=== PATIENT | male | born 1935 | race American Indian/Alaskan Native ===

== ENCOUNTER 2017-03-20 20:52 | Observation (INO) | payer MEDICARE ==
[2017-03-20 21:35] LABS: Basophils % (Auto) 0.9 % (0.0-1.8); Eosinophils % (Auto) 4.2 % (0.0-4.3); Hematocrit 34.3 % (35.5-45.6); Hemoglobin 11.4 gm/dl (11.8-15.2); Mean Corpuscular HGB Conc 33 % (32-34); Mean Corpuscular Hemoglobin 32 pg (28-32); Mean Corpuscular Volume 97 fl (84-94); Platelet Count 205 K/mm3 (140-440); Red Blood Count 3.54 M/mm3 (3.65-5.03)
[2017-03-20 21:43] LABS: INR 0.99 (0.87-1.13)
[2017-03-20 21:44] LABS: Partial Thromboplastin Time 34.3 Sec. (24.2-36.6)
[2017-03-20 21:51] LABS: Anion Gap 15 mmol/L; BUN/Creatinine Ratio 13.33; Blood Urea Nitrogen 12 mg/dL (9-20); Calcium 8.6 mg/dL (8.4-10.2); Carbon Dioxide 27 mmol/L (22-30); Chloride 106.6 mmol/L (98-107); Glucose 83 mg/dL (75-100); Potassium 3.8 mmol/L (3.6-5.0); Sodium 145 mmol/L (137-145)
[2017-03-20] MEDS ORDERED: TYLENOL PO ONE (22:44)
[2017-03-20] MEDS ORDERED: MOTRIN PO ONE (22:44)
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
--- NOTE | 2017-03-21 01:18 | Cat Scan Report ---
FINAL REPORT PROCEDURE: CT ANGIO CHEST TECHNIQUE: Computerized tomographic angiography of the chest was performed after the IV injection of iodinated nonionic contrast including image processing. The image data was postprocessed using 2-dimensional multiplanar reformatted (MPR) and 3-dimensional (MIP and/or volume rendered) techniques. HISTORY: cp COMPARISON: No prior studies are available for comparison. FINDINGS: Heart and pericardium: Heart size is slightly pronounced. Mild pericardial effusion.. Thoracic aorta: Mild atherosclerosis of the aorta. No aneurysm or dissection. Pulmonary vasculature: Normal. Lymph nodes: No enlarged thoracic lymph nodes. Lungs: There is a slight right effusion. No evidence of a consolidation or pneumothorax. The central airway is patent.. Pleural space: Right effusion is noted.. Musculoskeletal structures: Mild degenerative changes of thoracic spine.. Upper abdominal structures: No significant abnormality. IMPRESSION: Slight right effusion is identified. There is no evidence of pulmonary arterial emboli. No consolidation or pneumothorax. Mild cardiomegaly.
[2017-03-21] MEDS ORDERED: BABY ASPIRIN PO ONE (01:45)
[2017-03-21] MEDS ORDERED: DULCOLAX PR PRN (03:17)
[2017-03-21] MEDS ORDERED: TYLENOL PO PRN (03:17)
[2017-03-21] MEDS ORDERED: SODIUM CHLORIDE FLUSH SYRINGE 10 ML IV PRN (03:17)
[2017-03-21] MEDS ORDERED: MILK OF MAGNESIA PO PRN (03:17)
[2017-03-21] MEDS ORDERED: ZOFRAN IV PRN (03:17)
--- NOTE | 2017-03-21 03:20 | History and Physical Report ---
History of Present Illness Date of examination: 03/21/17 History of present illness: 82-year-old man with a history of hypertension, GERD, anxiety, depression comes emergency room with complaints of chest pain on the right chest which he is unable to describe, intermittent in nature lasting for 3-4 hours, intensity 5/10 , radiating to the right shoulder and right arm, he cannot identify exacerbating or relieving factors. Review Of Systems: Constitutional: no fever, chills, weight loss Ears, eyes, nose, mouth and throat: no nasal congestion, no nasal discharge, no sinus pressure, blurry vision, diplopia Neck: No neck pain or rigidity. Cardiovascular: orthopnea, palpitations Respiratory: No shortness of breath, cough Gastrointestinal: abdominal pain, hematochezia Genitourinary : no dysuria, frequency , hematuria Musculoskeletal: no joint swelling or muscle ache Integumentary: no rash, no pruritis Neurological: no parathesias, focal weakness Endocrine: no cold or heat intolerance, no polyuria or polydipsia Hematologic/Lymphatic: no easy bruising, no easy bleeding, no gland swelling Allergic/Immunologic: no urticaria, no angioedema. PAST MEDICAL HISTORY:hypertension, GERD, anxiety, depression PAST SURGICAL HISTORY: Skin graft, eye surgery FAMILY HISTORY: Hypertension SOCIAL HISTORY: Denies alcohol, tobacco, drugs Medications and Allergies Allergies Allergy/AdvReac Type Severity Reaction Status Date / Time No Known Allergies Allergy Verified 07/12/16 14:07 Home Medications Medication Instructions Recorded Confirmed Last Taken Type Acetaminophen/Codeine [Tylenol #3] 1 tab PO Q6H PRN #12 tab 07/12/16 Unknown Rx Docusate Sodium [Colace] 100 mg PO BID PRN #16 capsule 07/12/16 Unknown Rx Exam - Physical Exam Narrative exam: Gen. appearance: Patient lying in bed, no apparent distress HEENT: Normocephalic, atraumatic, pupils equally round and reactive to light, extraocular movement intact, and no sclericterus,. No JVD or thyromegaly or nodule,neck supple, no carotid bruit ,mucous membranes moist, no exudate or erythema Heart: S1, S2, regular rate and rhythm Lungs: Clear to auscultation bilaterally, breathing comfortable Abdomen: Positive bowel sounds, nontender, nondistended, no organomegaly Extremity: No edema, cyanosis, clubbing Skin: No rash, nodules, warm, dry Neuro: Oriented 3, cranial nerves II-12 intact, speech is fluent, motor and sensory intact - Constitutional Vitals: Temp Pulse Resp BP Pulse Ox 98.5 F 52 L 14 157/73 94 03/20/17 21:00 03/21/17 02:30 03/21/17 02:30 03/21/17 02:30 03/21/17 02:30 Results - Labs CBC & Chem 7: 03/21/17 03:28 03/21/17 03:28 Labs: Abnormal lab results 03/20/17 03/20/17 03/20/17 Range/Units 21:20 21:20 21:20 WBC 4.0 L (4.5-11.0) K/mm3 RBC 3.54 L (3.65-5.03) M/mm3 Hgb 11.4 L (11.8-15.2) gm/dl Hct 34.3 L (35.5-45.6) % MCV 97 H (84-94) fl RDW 13.0 L (13.2-15.2) % [place] % (Auto) 12.7 H (0.0-7.3) % Lymph # 0.9 L (1.2-5.4) K/mm3 D-Dimer 804.50 H (0-234) ng/mlDDU Lipase 10 L (13-60) units/L - Imaging and Cardiology EKG: image reviewed Chest x-ray: image reviewed Assessment and Plan Assessment Atypical chest pain Hypertension GERD Anxiety Depression Plan Admit to medicine Check cardiac enzymes, obtain stress test Continue appropriate outpatient medication *DVT prophylaxis, aspirin
[2017-03-21 03:53] LABS: Basophils % (Auto) 0.7 % (0.0-1.8); Eosinophils % (Auto) 4.1 % (0.0-4.3); Mean Corpuscular HGB Conc 34 % (32-34); Mean Corpuscular Hemoglobin 33 pg (28-32); Mean Corpuscular Volume 95 fl (84-94); Platelet Count 204 K/mm3 (140-440); Red Blood Count 3.36 M/mm3 (3.65-5.03); Red Cell Distribution Width 12.8 % (13.2-15.2); White Blood Count 3.9 K/mm3 (4.5-11.0)
[2017-03-21 04:03] LABS: Anion Gap 16 mmol/L; BUN/Creatinine Ratio 14.28; Blood Urea Nitrogen 10 mg/dL (9-20); Calcium 8.8 mg/dL (8.4-10.2); Carbon Dioxide 27 mmol/L (22-30); Chloride 106.5 mmol/L (98-107); Glucose 91 mg/dL (75-100); Potassium 3.5 mmol/L (3.6-5.0); Sodium 146 mmol/L (137-145)
--- NOTE | 2017-03-21 07:26 | XRay Report ---
CHEST 2 VIEWS INDICATION: Chest pain, hypertension. COMPARISON: 07/27/2011 CXR. FINDINGS: PA and lateral chest radiographs demonstrate normal cardiomediastinal silhouette. Well-expanded lungs, clear on the left. Mild nonspecific haziness over the peripheral right mid to lower lung seen with subtle right pleural effusion also not excluded. EKG leads. Questionable right sixth rib surgical absence anterolaterally versus destruction. CONCLUSION: Subtle right mid to lower lung abnormality suspected for pleural effusion and/or rib destruction/mass, as described, new since July 2011. Please also correlate clinically and further with CT, as appropriate. Thank you for the opportunity to participate in this patient's care.
--- NOTE | 2017-03-21 08:19 | Admit Criteria Form ---
Admission Criteria Documentation: CHEST PAIN Clinical Indications for Admission to Inpatient Care ([place]/check or initial the applicable condition/criteria) Admission is indicated for chest pain and ANY ONE of the following (1)(2)(3)(4)( 5)(6)(7): [X ]I. Angina with acute coronary syndrome (Also use Myocardial Infarction or Angina guideline) [ ]II. Hemodynamic instability [ ]III. Respiratory distress [ ]IV. Chest pain indicative of serious diagnosis other than coronary artery disease (e.g., aorticdissection) Extended stay beyond goal length of stay may be needed for(3)(4)(10)(45)(48) [ ]a) Unstable angina [ ]b) Continued suspicion of acute coronary syndrome with inability to complete needed cardiac evaluation (eg, patient clinically unable to undergo stress testing) [ ]c) Myocardial infarction [ ]d) Specific condition diagnosed after evaluation (eg, pulmonary embolism, aortic dissection)(49)(50)(51) The original [employer] content created by [employer] has been revised. The portions of the content which have been revised are identified through the use of italic text or in bold, and [employer] has neither reviewed nor approved the modified material. All other unmodified content is copyright [employer]. Please see references footnoted in the original [employer] edition 2017
[2017-03-21] MEDS ORDERED: LEXISCAN IV ONE ×2 (08:47→08:49)
[2017-03-21 10:53] VITALS: BP 144/79
--- NOTE | 2017-03-22 01:02 | Treadmill Report ---
INDICATION: Chest pain. ORDERING PHYSICIAN: Olimpia Carballo M.D. FINDINGS: There is no scintigraphic evidence of myocardial ischemia. The left ventricle is normal in size and systolic function. The left ventricular ejection fraction is measured at 71% with normal motion and wall thickening. CONCLUSION: Normal perfusion scan. JOB# [id number] [email or web address]/[email or web address]
--- NOTE | 2017-03-22 11:05 | Vascular Lab Report ---
LOWER EXTREMITY VENOUS DUPLEX: REASON FOR EXAM: Edema of the lower extremities. COMMENTS ON THE RIGHT: All veins visualized are freely compressible without evidence of internal echogenicity. Flow is spontaneous and phasic throughout. COMMENTS ON THE LEFT: All veins visualized are freely compressible without evidence of internal echogenicity. Flow is spontaneous and phasic throughout. IMPRESSION: No evidence of acute or chronic deep venous thrombosis in either lower extremity.
== END 2017-03-21 14:17 | disposition home or self-care (01) ==
LOC: ED 20:52 → 4A 03-21 03:17
PROVIDERS: ADMIT Internal Medicine; ATTEND Internal Medicine
DX: R07.89 Other chest pain (principal); I10 Essential (primary) hypertension; K21.9 Gastro-esophageal reflux disease without esophagitis; F41.9 Anxiety disorder, unspecified; F32.9 Major depressive disorder, single episode, unspecified
CPT/HCPCS: 36415; 71020; 71275; 78452; 80048; 83690; 84484; 85025; 85379; 85610; 85730; 93005; 93010; 93017; 93970; 96374; 99285; A9502; G0378; J2785; Q9967